=== PATIENT | female | born 1990 | race Caucasian/White ===

== ENCOUNTER 2017-09-21 23:57 | Emergency (ER) | payer OTHER ==
--- NOTE | 2017-09-22 01:26 | ER Document Report ---
ED Respiratory Problem - General Mode of Arrival: Ambulatory Information source: Patient TRAVEL OUTSIDE OF THE [place] IN LAST 30 DAYS: No - HPI Patient complains to provider of: Chest pain - Due to cough, Cough, Short of breath Onset: This afternoon - She states cough is been since her ablation but today it was worse she states it feels like there is something in the back of her throat that she can get up. Duration: Continuous Initiating Event: URI Quality of pain: Sharp - When coughing no pain and less coughing Cough: Nonproductive Sputum amount: None Associated symptoms: Chest pain/discomfort - When coughing, Congestion, Cough, PND Similar symptoms previously: Yes Recently seen / treated by doctor: Yes - General Chief Complaint: Cough Stated Complaint: SHORTNESS OF BREATH Time Seen by Provider: 09/22/17 00:58 Notes: 26-year-old female presents to ED for complaint of cough shortness of breath unable to lay flat today. She states she has had had some chest pain from the cough but no cardiac chest pain. She states she has a history of arrhythmias and had a four-chamber headache ablation on August [id number] by Dr. Santos Minor. She states she has had some coughing off and on since then after they intubate her but yesterday and today the coughing was much harder and she became very short of breath and had trouble breathing after 1 very hard coughing spell. 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 She states she did not feel like she had any arrhythmias and did not send an EKG to the psychologist personnel today but she has spoken with him and he told her to come to the ED to get checked out. She states that her psychologist personnel calls her every Thursday to check on her. She states her 6 week checkup is on 10/09/2017. At time of assessment vital signs were temperature 98.5, pulse ox 98%, blood pressure 115/79 with a pulse of 74 and respirations of 18. (MULUGETA REYES) - Related Data Allergies/Adverse Reactions: No Known Allergies Allergy (Verified 09/22/17 00:02) Past Medical History - General Information source: Patient - Social History Smoking Status: Never Smoker Cigarette use (# per day): No Chew tobacco use (# tins/day): No Smoking Education Provided: No Frequency of alcohol use: Social Drug Abuse: None Occupation: [employer] Lives with: Family Family History: Arthritis, CAD, COPD, CVA, DM, Hyperlipidemia, Hypertension, Other - CHF and kidney failure. denies: Malignancy, Thyroid Disfunction Patient has suicidal ideation: No Patient has homicidal ideation: No - Past Medical History Cardiac Medical History: Reports: Other - Dysrhythmias with four-chamber ablation 3 Pulmonary Medical History: Reports: None EENT Medical History: Reports: None Neurological Medical History: Reports: None Endocrine Medical History: Reports: None Renal/ Medical History: Reports: None Malignancy Medical History: Reports: None GI Medical History: Reports: None Musculoskeltal Medical History: Reports None Skin Medical History: Reports None Psychiatric Medical History: Reports: None Traumatic Medical History: Reports: None Infectious Medical History: Reports: None Past Surgical History: Reports: Hx Cardiac Surgery - Four-chamber cardiac ablation 3: 06/02/2016, 09/22/2016, 08/31/2017 - Immunizations Immunizations up to date: Yes Hx Diphtheria, Pertussis, Tetanus Vaccination: Yes Review of Systems - Review of Systems Constitutional: Recent illness EENT: Sinus discharge Cardiovascular: No symptoms reported Respiratory: Cough, Short of breath. denies: Sputum Gastrointestinal: No symptoms reported Genitourinary: No symptoms reported Female Genitourinary: No symptoms reported Musculoskeletal: No symptoms reported Skin: No symptoms reported Hematologic/Lymphatic: No symptoms reported Neurological/Psychological: No symptoms reported -: Yes All other systems reviewed and negative Physical Exam - Vital signs Interpretation: Normal - General General appearance: Appears well, Alert - HEENT Head: Normocephalic, Atraumatic Eyes: Normal Pupils: PERRL Ears: Normal External canal: Normal Tympanic membrane: Normal Sinus: Normal Nasal: Swelling, Clear rhinorrhea Mouth/Lips: Normal Mucous membranes: Normal Pharynx: Post nasal drainage Neck: Normal - Respiratory Respiratory status: No respiratory distress. No: Respiratory distress Chest status: Pain with cough Breath sounds: Nonproductive cough. No: Productive cough, Rales, Rhonchi, Stridor, Wheezing Chest palpation: Normal - Cardiovascular Rhythm: Regular Heart sounds: Normal auscultation Murmur: No - Abdominal Inspection: Normal Distension: No distension Bowel sounds: Normal Tenderness: Nontender Organomegaly: No organomegaly - Back Back: Normal, Nontender - Extremities General upper extremity: Normal inspection, Nontender, Normal color, Normal ROM , Normal temperature General lower extremity: Normal inspection, Nontender, Normal color, Normal ROM , Normal temperature, Normal weight bearing. No: Brianna's sign - Neurological Neuro grossly intact: Yes Cognition: Normal Orientation: AAOx4 Kassi Coma Scale Eye Opening: Spontaneous [place] Coma Scale Verbal: Oriented Kassi Coma Scale Motor: Obeys Commands [place] Coma Scale Total: 15 Speech: Normal Motor strength normal: LUE, RUE, LLE, RLE Sensory: Normal - Psychological Associated symptoms: Normal affect, Normal mood - Skin Skin Temperature: Warm Skin Moisture: Dry Skin Color: Normal - Vital signs Vitals: Temp Pulse Resp BP Pulse Ox 98.1 F 91 18 129/87 H 98 09/22/17 00:02 09/22/17 00:02 09/22/17 00:02 09/22/17 00:02 09/22/17 00:02 Course - Re-evaluation Re-evalutation: 09/22/17 01:[address] Garcia and tendons patient's medical history and her symptoms of cough. When I tried to lay the patient down she could not tolerate more than 40 . She breathes much easier at 90. EKG chest x-ray discussed with patient and with Dr. Garcia. After he saw the x-ray, he stated that we needed blood work and to give her 20 of Lasix IV xray. Report given to Kirit TUTTLE. Labs and Lasix were ordered. (MULUGETA REYES) - Vital Signs Vital signs: Temp Pulse Resp BP Pulse Ox 98.5 F 74 18 115/79 98 09/22/17 01:15 09/22/17 01:15 09/22/17 01:15 09/22/17 01:15 09/22/17 01:15 Discharge - Discharge Clinical Impression: Cough, Shortness of breath Condition: Stable Disposition: AGAINST MEDICAL ADVICE Additional Instructions: You have chosen to sign out AGAINST MEDICAL ADVICE at this time. Your symptoms and workup to this point are concerning for pulmonary vascular congestion, along with an upper respiratory infection. You likely need additional treatments and are taking a risk by leaving which could result in worsening illness. Recommendation is that you seek medical attention immediately either elsewhere or by returning to this facility.
[2017-09-22 01:28] VITALS: BP 115/79
[2017-09-22] MEDS ORDERED: FUROSEMIDE INJ/PF 20 MG/2 ML SDV IV ONE (01:47)
--- NOTE | 2017-09-22 01:51 | RADIOLOGY REPORT (SQ) ---
EXAM DESCRIPTION: CHEST PA/LAT CLINICAL HISTORY: 26 years, Female, cough short of breath COMPARISON: None. NUMBER OF VIEWS: Two. TECHNIQUE: PA lateral. LIMITATIONS: None. FINDINGS: Adequate lung volumes, clear parenchyma, normal cardiac silhouette, and intact bony thorax. IMPRESSION: Normal chest radiographs. 2011 [employer]- All Rights Reserved
--- NOTE | 2017-09-22 06:20 | EKG REPORT ---
SEVERITY:- ABNORMAL ECG - SINUS RHYTHM FIRST DEGREE AV BLOCK PROBABLE LEFT ATRIAL ABNORMALITY BORDERLINE LEFT AXIS DEVIATION : Confirmed by: Silvio Lama 22-Sep-2017 06:20:33
== END 2017-09-22 02:31 | disposition left against medical advice (07) ==
LOC: ER 23:57
DX: R07.9 Chest pain, unspecified (principal); R06.02 Shortness of breath; R05 Cough
CPT/HCPCS: 71020; 93005; 93010; 99284